=== PATIENT | male | born 1975 | race Caucasian/White ===

== ENCOUNTER 2018-11-05 17:46 | Emergency (ER) | payer MEDICAID ==
[~2018-11-05] VITALS: Wt 65.9 kg
[~2018-11-05 17:46] MED LIST: BEN25 PO; HC30CR25 TOP
[2018-11-05] MEDS ORDERED: IBUP-1542 PO (19:10)
[2018-11-05 19:47] VITALS: BP 125/86; PULSE 85; RESP 18
--- NOTE | 2018-11-06 02:23 | ERD ---
ER Documentation Chief Complaint Chief Complaint L SIDE CHEST PAIN FOR 1 WK. INTERMITTENT BUT NOW CONSTANT. MILD SOB/NAUSEA HPI 42-year-old male presenting with left-sided chest pain for the past 1 week. Initially it was intermittent but now it is constant. He also complains of occasional palpitations. Currently he is denying any shortness of breath. He has not had any diaphoresis, vomiting, or any worsening with exertion of his symptoms. 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 He has not tried to take any medications to alleviate the pain. He describes it as an aching pain, radiating to his left back and left shoulder. No associated numbness or tingling. No alleviating factors. No exacerbating factors. ROS All systems reviewed and are negative except as per history of present illness. Medications Home Meds Active Scripts Ibuprofen* (Motrin*) 600 Mg Tab, 600 MG PO Q6H PRN for PAIN AND OR ELEVATED TEMP, #30 TAB Prov:CARLY THACKER MD 11/05/18 Hydrocortisone* Topical (Hydrocortisone* Topical) 2.5%-28.3 Gm Cream..g., 1 APPLIC TOP BID, #1 TUB Prov:DALY SULLIVAN PA-C 02/02/16 Diphenhydramine Hcl* (Benadryl*) 25 Mg Cap, 25 MG PO Q6 PRN for ITCHING/RASH, #30 TAB Prov:DALY SULLIVAN PA-C 02/02/16 Allergies Allergies: Coded Allergies: No Known Allergy (Unverified , 02/02/16) PMhx/Soc Medical and Surgical Hx: pt denies Medical Hx, pt denies Surgical Hx History of Surgery: No Anesthesia Reaction: No Hx Neurological Disorder: No Hx Respiratory Disorders: No Hx Cardiac Disorders: No Hx Psychiatric Problems: No Hx Miscellaneous Medical Probl: No Hx Alcohol Use: No Hx Substance Use: No Hx Tobacco Use: No Smoking Status: Never smoker FmHx Family History: No diabetes, No coronary disease Physical Exam Vitals Vital Signs Date Temp Pulse Resp B/P (MAP) Pulse Ox O2 O2 Flow FiO2 Time Delivery Rate 11/05/18 98.9 85 18 125/86 99 Room Air 19:47 (99) 11/05/18 98.0 72 18 145/88 98 17:50 (107) Physical Exam Const: No acute distress Head: Atraumatic Eyes: Normal Conjunctiva ENT: Normal External Ears, Nose and Mouth. Neck: Full range of motion. No meningismus. Chest wall: Tenderness to palpation in the left chest wall, reproduces pain Resp: Clear to auscultation bilaterally Cardio: Regular rate and rhythm, no murmurs. 2+ distal pulses Abd: Soft, non tender, non distended. Normal bowel sounds Skin: No petechiae or rashes Back: Left upper back paraspinal muscle tenderness, reproduces pain. Ext: No cyanosis, or edema. full range of motion at all joints. Neur: Awake and alert, no facial asymmetry, strength and sensations intact in all 4 extremities Psych: Normal Mood and Affect Result Diagram: 11/05/18181611/05/181816 Results 24 hrs Laboratory Tests Test 11/05/18 18:17 White Blood Count 7.0 10^3/ul Red Blood Count 4.56 10^6/ul Hemoglobin 14.5 g/dl Hematocrit 40.8 % Mean Corpuscular Volume 89.5 fl Mean Corpuscular Hemoglobin 31.8 pg Mean Corpuscular Hemoglobin Concent 35.5 g/dl Red Cell Distribution Width 11.8 % Platelet Count 283 10^3/UL Mean Platelet Volume 10.6 fl Immature Granulocytes % 0.300 % Neutrophils % 49.9 % Lymphocytes % 36.0 % Monocytes % 7.7 % Eosinophils % 5.1 % Basophils % 1.0 % Nucleated Red Blood Cells % 0.0 /100WBC Immature Granulocytes # 0.020 10^3/ul Neutrophils # 3.5 10^3/ul Lymphocytes # 2.5 10^3/ul Monocytes # 0.5 10^3/ul Eosinophils # 0.4 10^3/ul Basophils # 0.1 10^3/ul Nucleated Red Blood Cells # 0.0 10^3/ul Sodium Level 139 mmol/L Potassium Level 3.8 mmol/L Chloride Level 103 mmol/L Carbon Dioxide Level 25 mmol/L Anion Gap 11 Blood Urea Nitrogen 12 mg/dl Creatinine 0.73 mg/dl Est Glomerular Filtrat Rate mL/min > 60 mL/min Glucose Level 113 mg/dl Calcium Level 9.3 mg/dl Troponin I < 0.012 ng/ml Procedures/MDM EMERGENT LABS AND DIAGNOSTIC STUDIES: Lab Results above were reviewed and interpreted by me. CBC: no anemia or evidence of infection BMP: No evidence of electrolyte abnormality, renal failure, hypoglycemia Troponin within normal limits, not indicative of cardiac ischemia 12-lead EKG was interpreted by Prudence Thacker MD: Normal Sinus Rhythm Normal axis Normal intervals No acute ST or T wave changes suggestive of acute ischemia or STEMI. Radiology Results as interpreted by Radiology below were reviewed by Aftab Thacker MD: Chest x-ray shows no acute abnormalities Initial Nursing notes reviewed. Previous Medical Records requested via the Electronic Health Record. EMERGENCY DEPARTMENT COURSE / MEDICAL DECISION MAKING: Patient presents with ongoing intermittent chest pain with palpitations. Vitals are unremarkable. He does have tenderness on exam of the chest wall and the back which reproduces pain. Have a very low suspicion for pulmonary embolism or acute coronary syndrome. Do not suspect aortic dissection. Workup was unremarkable. I discussed with the patient that I believe his symptoms are mostly musculoskeletal. I am not concerned about his palpitations are most likely benign. I did recommend follow-up with PCP if his symptoms continue within the next 3-4 days. If any of his symptoms worsen, he was encouraged to return to the ER. Ibuprofen was recommended for pain control. Patient's blood pressure was elevated (>120/80) but appears stable without evidence of hypertensive emergency or urgency. The patient was counseled about the risks of hypertension and urged to pursue outpatient monitoring and therapy within a week with their primary care physician. Departure Diagnosis: Primary Impression: Intermittent palpitations Additional Impression: Left-sided chest wall pain Condition: Stable Patient Instructions: Chest Wall Pain, Costochondritis, Palpitations Referrals: [facility] Usted se lora hecho un examen mdico de control que le indica que no est en polina condicin que requiera tratamiento urgente en el Departamento de Emergencia. Un estudio ms profundo y el tratamiento de puckett condicin pueden esperar sin ningn riesgo hasta que usted sea atendida/o en el consultorio de puckett mdico o polina clnica. Es responsabilidad suya arreglar polina aaron para el seguimiento del dayo. MANEJO DE CONDICIONES NO URGENTES EN EL FUTURO 1) Si usted tiene un mdico de atencin primaria: Usted debera llamar a puckett mdico de atencin primaria antes de venir al depa rtamento de emergencia. Despus de las horas de consultorio, puckett doctor o puckett asociado/a est disponible por telfono. El mdico o enfermero de gemini en el servicio telefnico puede asesorarle por mynor medio para atender el problema, o dayo contrario se puede programar polina aaron. 2) Si usted no tiene un mdico de atencin primaria: Llame al mdico o clnica de referencia que aparece abajo chad las horas de consultorio para hacer polina aaron para que le vean. CLINICAS: [facility] [phone] [address] [facility] [phone] [facility] [phone] [facility] [phone] [place] [id number] [phone] [facility]. [phone] [place] Nov 06, 2018 02:23
== END 2018-11-05 19:48 | disposition home or self-care (01) ==
LOC: E/R 17:46
DX: R00.2 Palpitations (principal)
CPT/HCPCS: 36415; 71045; 80048; 84484; 85025; 93005; Z7502; Z7610